=== PATIENT | female | born 1950 | race Caucasian/White ===

== ENCOUNTER 2017-07-11 05:48 | Emergency (ER) | payer OTHER ==
[~2017-07-11] VITALS: Ht 162.6 cm; Wt 65.8 kg
[2017-07-11 06:27] VITALS: BP 114/59
== END 2017-07-11 06:27 | disposition short-term general hospital (02) ==
LOC: ED 05:48
DX: I21.3 ST elevation (STEMI) myocardial infarction of unspecified site (principal); I25.10 Atherosclerotic heart disease of native coronary artery without angina pectoris; I10 Essential (primary) hypertension; E11.9 Type 2 diabetes mellitus without complications; E78.5 Hyperlipidemia, unspecified; Z95.5 Presence of coronary angioplasty implant and graft
CPT/HCPCS: 83880; J1644; J2270; J2405; Q0092

== ENCOUNTER 2018-10-16 03:00 | Observation (INO) | payer OTHER ==
[~2018-10-16] VITALS: Ht 154.9 cm; Wt 63.5 kg
[2018-10-16 03:06] VITALS: Ht 154.9 cm; Wt 63.5 kg
[2018-10-16 03:56] LABS: BASOPHIL % 0.4 % (0-2); PLATELET COUNT 254 x10^3mcL (130-400); RED CELL DISTRIBUTION WIDTH 13.6 % (11.5-14.5)
[2018-10-16 04:02] LABS: CALCIUM 8.4 mg/dL (8.5-10.1); CARBON DIOXIDE 19.2 mmol/L (21-32); CREATININE SERUM 1.3 mg/dL (0.6-1.0); POTASSIUM SERUM 4.2 mmol/L (3.5-5.1)
[2018-10-16 04:06] LABS: BILIRUBIN TOTAL 0.21 mg/dL (0.20-1.00); TOTAL PROTEIN, SERUM 7.8 g/dL (6.4-8.2)
[2018-10-16 04:07] LABS: ALBUMIN 3.3 g/dL (3.4-5.0)
[2018-10-16 05:52] VITALS: BP 158/86
[2018-10-16 09:30] VITALS: BP 140/63
[2018-10-16] MEDS ORDERED: ASPIR 8181 MG PO (12:07)
[2018-10-16] MEDS ORDERED: JANUVIA100 M1 PO (12:08)
[2018-10-16] MEDS ORDERED: LASIX40 MG PO (12:08)
[2018-10-16] MEDS ORDERED: PLA75 PO (12:08)
[2018-10-16] MEDS ORDERED: NORVASC2.5 MG PO (12:08)
[2018-10-16] MEDS ORDERED: ZETIA10 M1 PO (12:09)
[2018-10-16] MEDS ORDERED: COR6 PO (12:09)
[2018-10-16 12:33] VITALS: BP 121/63
[2018-10-16 17:22] VITALS: BP 145/73
[2018-10-16] MEDS ORDERED: RESTORIL15 MG PO (17:41)
[2018-10-16 21:44] VITALS: BP 119/59
[2018-10-17 05:17] VITALS: BP 134/72
[2018-10-17 06:32] LABS: BILIRUBIN TOTAL 0.2 mg/dL (0.20-1.00); CALCIUM 9.1 mg/dL (8.5-10.1); CARBON DIOXIDE 25.5 mmol/L (21-32); CREATININE SERUM 1.4 mg/dL (0.6-1.0); POTASSIUM SERUM 3.9 mmol/L (3.5-5.1); TOTAL PROTEIN, SERUM 7.7 g/dL (6.4-8.2)
[2018-10-17 06:40] LABS: ALBUMIN 3.2 g/dL (3.4-5.0)
[2018-10-17 07:00] LABS: BASOPHIL % 0.7 % (0-2); PLATELET COUNT 243 x10^3mcL (130-400); RED CELL DISTRIBUTION WIDTH 13.7 % (11.5-14.5)
[2018-10-17 08:30] VITALS: BP 103/50
[2018-10-17 10:57] VITALS: BP 128/73
[2018-10-17 12:49] VITALS: BP 128/73
[2018-10-17 13:07] VITALS: BP 128/73
[2018-10-17 15:59] VITALS: BP 110/63
== END 2018-10-17 17:28 | disposition home health service (06) | DRG 280 ==
LOC: ED 03:00 → DU 05:06
PROVIDERS: Emergency Medicine; Internal Medicine Pulmonary Disease
DX: I11.0 Hypertensive heart disease with heart failure (principal); J96.01 Acute respiratory failure with hypoxia; I21.A1 Myocardial infarction type 2; I24.9 Acute ischemic heart disease, unspecified; I50.43 Acute on chronic combined systolic (congestive) and diastolic (congestive) heart failure; I16.0 Hypertensive urgency; I25.5 Ischemic cardiomyopathy; I25.10 Atherosclerotic heart disease of native coronary artery without angina pectoris; E11.9 Type 2 diabetes mellitus without complications; Z87.891 Personal history of nicotine dependence; Z95.5 Presence of coronary angioplasty implant and graft
CPT/HCPCS: 82962; 83880; 94150; G0378; J1940; Q0092